=== PATIENT | female | born 1950 | race Caucasian/White ===

== ENCOUNTER → 2020-12-18 | Outpatient (CLI) | payer MEDICARE ==
[~2020-12-18] MED LIST: ADVAIR HFA 115-28 GM INH; ANORO ELLIPTA1 EACH INH; ASPIR-LOW81 MG PO; CILOSTAZOL100 MG PO; CRESTOR40 MG PO; DICLOFENAC SOD100 GM TP; ELIQUIS 5 MG TAB5 MG PO; ELIQUIS5 MG PO; FENOFIBRATE145 MG PO; FLUOXETINE HCL40 MG PO; IMDUR ER TAB 3030 MG PO; LEVAQUIN500 MG PO; MEDROL DOSEPAK 24 MG PO; MULTAQ400 MG PO; NITROSTAT 0.40.4 MG SL; RANEXA1000 MG PO; SULFAMETHOXAZO1 EACH PO; SYNTHROID50 MCG PO; TENORMIN 50 MG50 MG PO; TRAZODONE HCL100 MG PO; VENTOLIN/PROVE0.5 ML INH; XOPENEX HFA15 GM INH
[2020-12-18 16:34] LABS: HEMOGLOBIN 12.6 gm/dl (12.3-15.3); RED BLOOD COUNT 3.79 M/UL (4.00-5.10); WHITE BLOOD COUNT 8.1 K/UL (4.5-11.0)
== END ==
LOC: LAB 15:07
PROVIDERS: Internal Medicine Nephrology
DX: N17.9 Acute kidney failure, unspecified (principal); N28.1 Cyst of kidney, acquired
CPT/HCPCS: 36415; 80053; 82570; 83970; 84100; 84156; 85025; 85027; 89050

== ENCOUNTER → 2021-02-10 | Outpatient (CLI) | payer MEDICARE | LOC: KOH-I 11:00 | DX: E78.00 Pure hypercholesterolemia, unspecified (principal); M79.606 Pain in leg, unspecified | CPT/HCPCS: 93925 ==

== ENCOUNTER 2021-02-27 18:54 | Emergency (ER) | payer MEDICARE ==
[2021-02-27 19:29] LABS: HEMOGLOBIN 13.8 gm/dl (12.3-15.3); RED BLOOD COUNT 4.1 M/UL (4.00-5.10); WHITE BLOOD COUNT 8.6 K/UL (4.5-11.0)
== END 2021-02-27 22:18 | disposition left against medical advice (07) ==
LOC: ER1 18:54 → CDU 21:31 → ER1 21:31
PROVIDERS: Emergency Medicine
DX: R07.89 Other chest pain (principal); R00.2 Palpitations; J44.9 Chronic obstructive pulmonary disease, unspecified; I48.91 Unspecified atrial fibrillation; Z86.73 Personal history of transient ischemic attack (TIA), and cerebral infarction without residual deficits; Z90.710 Acquired absence of both cervix and uterus
CPT/HCPCS: 71045; 80053; 82550; 82553; 83690; 83735; 83874; 83880; 84100; 84484; 85025; 85610; 85730; 99285

== ENCOUNTER → 2021-05-13 | Outpatient (CLI) | payer MEDICARE ==
[2021-05-13 12:49] LABS: HEMOGLOBIN 13.8 gm/dl (12.3-15.3); RED BLOOD COUNT 4.08 M/UL (4.00-5.10); WHITE BLOOD COUNT 8.5 K/UL (4.5-11.0)
== END ==
LOC: LAB 11:37
PROVIDERS: Nurse Practitioner Family
DX: I12.9 Hypertensive chronic kidney disease with stage 1 through stage 4 chronic kidney disease, or unspecified chronic kidney disease (principal); N18.9 Chronic kidney disease, unspecified; E53.8 Deficiency of other specified B group vitamins; E55.9 Vitamin D deficiency, unspecified
CPT/HCPCS: 36415; 80053; 80061; 82607; 84439; 84443; 85025

== ENCOUNTER → 2021-05-20 | Outpatient (CLI) | payer MEDICARE | LOC: HEART 5 13:56 | DX: R00.2 Palpitations (principal) ==

== ENCOUNTER → 2021-06-10 | Outpatient (CLI) | payer MEDICARE | LOC: KOH-I 10:06 | DX: M25.551 Pain in right hip (principal); G89.29 Other chronic pain; M24.851 Other specific joint derangements of right hip, not elsewhere classified | CPT/HCPCS: 73721 ==

== ENCOUNTER → 2022-04-15 | Outpatient (CLI) | payer MEDICARE ==
[2022-04-15 13:06] LABS: HEMOGLOBIN 12.8 gm/dl (12.3-15.3); RED BLOOD COUNT 3.8 M/UL (4.00-5.10); WHITE BLOOD COUNT 8.2 K/UL (4.5-11.0)
== END ==
LOC: LAB 12:16
PROVIDERS: Nurse Practitioner Family
DX: I10 Essential (primary) hypertension (principal); E03.9 Hypothyroidism, unspecified; E53.8 Deficiency of other specified B group vitamins; E55.9 Vitamin D deficiency, unspecified; R73.09 Other abnormal glucose
CPT/HCPCS: 36415; 80053; 80061; 82570; 82607; 83036; 84156; 84439; 84443; 85025

== ENCOUNTER → 2022-04-20 | Outpatient (CLI) | payer MEDICARE | LOC: HEART 5 08:30 | DX: I20.9 Angina pectoris, unspecified (principal); R94.39 Abnormal result of other cardiovascular function study | CPT/HCPCS: 78452; A9502; J2785 ==

== ENCOUNTER → 2022-06-13 | Outpatient (CLI) | payer MEDICARE ==
[~2022-06-13] MED LIST changes: +LOPRESSOR100 MG PO; +MULTAQ 400 MG400 MG PO
[2022-06-13 10:54] LABS: HEMOGLOBIN 13.6 gm/dl (12.3-15.3); RED BLOOD COUNT 4.09 M/UL (4.00-5.10); WHITE BLOOD COUNT 8.3 K/UL (4.5-11.0)
== END ==
LOC: LAB 10:36
PROVIDERS: Internal Medicine Cardiovascular Disease
DX: I25.119 Atherosclerotic heart disease of native coronary artery with unspecified angina pectoris (principal); R94.39 Abnormal result of other cardiovascular function study; J84.9 Interstitial pulmonary disease, unspecified
CPT/HCPCS: 71046; 80048; 85025

== ENCOUNTER → 2022-06-16 | Outpatient (CLI) | payer MEDICARE | LOC: CATH 06:51 | DX: I25.10 Atherosclerotic heart disease of native coronary artery without angina pectoris (principal) | CPT/HCPCS: 99152; C1769; C1894; J1644; J2250; J3010; Q9965 ==